=== PATIENT | female | born 1985 | race Caucasian/White ===

== ENCOUNTER 2019-12-08 21:45 | Inpatient (IN) ==
[2019-12-08 23:31] LABS: URINE SOURCE VOIDED
[2019-12-08 23:54] LABS: BASO# 0.05 X1000 (0.0-0.2); BASO% 0.2 % (0.0-0.8); EOS# 0.06 X1000 (0.0-0.7); EOS% 0.3 % (0.0-10.0); HEMATOCRIT 33.3 % (37.0-47.0); HEMOGLOBIN 11.3 g/dL (12.0-16.0); IMM GRAN# 0.09 X1000 (0.0-0.04); IMM GRAN% 0.4 % (0.0-0.5); LYMPH# 2.17 X1000 (1.2-3.4); LYMPH% 10.3 % (20.5-51.1); MCHC 33.9 g/dL (33-37); MCV 94.3 FL (81-99); MONO# 1.02 X1000 (0.11-0.59); MONO% 4.9 % (1.7-9.3); MPV 9.9 FL (7.4-10.4); NEUT# 17.63 X1000 (1.4-6.5); NEUT% 83.9 % (42.2-75.2); PLT 373 X1000 (130-400); RBC 3.53 XMIL (4.2-5.4); RDW 12.2 % (11.5-14.5); WBC 21.02 X1000 (4.8-10.8)
[2019-12-09 00:03] LABS: UR AMPHETAMINES QUAL PRESUMPTIVE POSITIVE (NONE DETECT); UR BARBITUATES QUAL NONE DETECTED (NONE DETECT); UR BENZODIAZEPIN QUAL NONE DETECTED (NONE DETECT); UR CANNABINOIDS QUAL NONE DETECTED (NONE DETECT); UR COCAINE QUAL NONE DETECTED (NONE DETECT); UR METHADONE QUAL NONE DETECTED (NONE DETECT); UR OPIATES QUAL NONE DETECTED (NONE DETECT); UR OXYCODONE QUAL NONE DETECTED (NONE DETECT); UR PCP QUAL NONE DETECTED (NONE DETECT)
[2019-12-09 00:09] LABS: BILIRUBIN URINE NEGATIVE (NEGATIVE); BLOOD URINE MODERATE (NEGATIVE); COLOR YELLOW; GLUCOSE URINE NEGATIVE (NEGATIVE); KETONE URINE NEGATIVE (NEGATIVE); LEUKOCYTES URINE NEGATIVE (NEGATIVE); NITRITE URINE NEGATIVE (NEGATIVE); PH URINE 6.5; PROTEIN URINE NEGATIVE (NEGATIVE); SP GRAVITY URINE 1.021; TURBIDITY URINE CLEAR (CLEAR); UROBILINOGEN URINE NORMAL (NORMAL)
[2019-12-09 00:29] LABS: RPR NON-REACTIVE (NONREACTIVE); RUBELLA SCREEN IMMUNE (IMMUNE)
[2019-12-09 00:41] LABS: RAPID HIV PRESUMPTIVE NEGATIVE
[2019-12-09 01:05] LABS: LYMPHS 8 % (21-51); MONO 2 % (1-9); NRBC 1 % (0-0); SEGS 90 % (42-75)
[2019-12-09 01:14] LABS: URINE SOURCE CLEAN CATCH
[2019-12-09] MEDS ORDERED: LR 1,000 ML IV SCH (01:15)
[2019-12-09 02:16] LABS: BILIRUBIN URINE NEGATIVE (NEGATIVE); BLOOD URINE MODERATE (NEGATIVE); COLOR YELLOW; GLUCOSE URINE NEGATIVE (NEGATIVE); KETONE URINE NEGATIVE (NEGATIVE); LEUKOCYTES URINE NEGATIVE (NEGATIVE); NITRITE URINE NEGATIVE (NEGATIVE); PH URINE 6.5; PROTEIN URINE NEGATIVE (NEGATIVE); SP GRAVITY URINE 1.021; TURBIDITY URINE CLEAR (CLEAR); UROBILINOGEN URINE NORMAL (NORMAL)
[2019-12-09 02:18] LABS: UR EPITHELIAL CELLS <10 /HPF (<10); URINE BACTERIA NEGATIVE /HPF; URINE RBC TNTC /HPF (<10); URINE WBC <10 /HPF (<10)
[2019-12-09] MEDS ORDERED: STADOL IV ONE (04:34)
[2019-12-09] MEDS ORDERED: KEFZOL 2 GM/D5W 2 GM/50 ML IVPB IV ONE (04:56)
[2019-12-09] MEDS: LR 1,000 ML IV SCH ×4 (06:23→21:58)
--- NOTE | 2019-12-09 07:37 | Diag Imaging Result Doc PS360 ---
US RENAL 1 (LIMITED)-LEFT - 12/09/2019 INDICATION: Left Flank Pain/ blood in urine TECHNIQUE: COMPARISON: 01/21/2013 FINDINGS: There is moderate left hydronephrosis. There is probably also proximal hydroureter. The obstruction is not demonstrated. There are a couple of rather large stones in the left kidney. These measure up to about 1 cm. The left kidney measures 11.6 x 6.1 x 7.4 cm. IMPRESSION: Moderate left hydronephrosis presumably from a distal obstruction. Stones in the left kidney. Electronically signed by Franklin Ortega 12/09/2019 7:34 AM
--- NOTE | 2019-12-09 07:38 | Diag Imaging Result Doc PS360 ---
US OBS COMPLETE > 14 WKS - 12/09/2019 INDICATION: NPC, unsure of dates TECHNIQUE: COMPARISON: None FINDINGS: There is a single advanced intrauterine . Positioning is cephalic. cardiac activity is 156 bpm. Estimated gestational age is 31 weeks four days +/- 17 days. Estimated delivery date is 02/06/2020. Placenta is fundal. There is a small hypoechoic nodule in the placenta measuring about 9 mm suggesting a small hemangioma. No hemorrhages or fluid collections. No placental calcifications. Normal anatomy and movement. Normal head and intracranial contents, spine, extremities, four-chamber heart, diaphragms, stomach, kidneys, urinary bladder, three-vessel cord and cord insertion. The cervix is long and closed. IMPRESSION: Living advanced intrauterine . Very small hemangioma in the placenta. Otherwise no abnormalities. Electronically signed by Franlkin Ortega 12/09/2019 7:36 AM
[2019-12-09] MEDS: STADOL IV PRN (08:25)
--- NOTE | 2019-12-09 08:31 | HISTORY AND PHYSICAL ---
HISTORY OF PRESENT ILLNESS: Patient is a 34-year-old white female G4, P3 presents with no care and left flank pain that has been worsening over the course of time. PAST MEDICAL HISTORY: Significant for ADHD. PAST SURGICAL HISTORY: She has had dental surgery. PAST OB HISTORY: G4, P3 spontaneous vaginal delivery x3. EXCAVATOR OPERATOR HISTORY: Menarche at age 13. REVIEW OF SYSTEMS: Significant for asthma and migraines. She does report a history of kidney stones in the past. FAMILY HISTORY: Significant for myocardial infarction and diabetes mellitus. SOCIAL HISTORY: Tobacco use 1 pack per day. Alcohol use none. MEDICATIONS: Adderall 50 mg daily. She also takes vitamins. ALLERGIES: Dairy products. PHYSICAL EXAMINATION: VITAL SIGNS: Height 5 feet 1 inch, weight 150 pounds, temperature 97.8 degrees, blood pressure 124/64, pulse of 79, respirations 18, and heart rate in the 130s to 140s with good reassurance. HEENT: Pupils equal, round, and reactive to light and accommodation. Extraocular movements intact. Oropharynx clear. NECK: Supple. No thyromegaly. LUNGS: Clear to auscultation. HEART: Regular rate and rhythm. ABDOMEN: Gravid. Patient with left CVA tenderness to palpation. She rates it as severe pain. EXTREMITIES: No clubbing, cyanosis, or edema noted. NEUROLOGIC: Cranial nerves 2-12 grossly intact. Motor 5/5. LABORATORY AND DIAGNOSTICS: Urinalysis showed moderate blood. Renal ultrasound report showed nephrolithiasis and hydronephrosis on the left side. OB ultrasound shows a 31 week . White count was noted to be elevated at 21,000. Other lab panel was drawn. Hemoglobin was 11.3, hematocrit 33.3, and platelet count 373,000. ASSESSMENT AND PLAN: A 34-year-old white female, G4, P3, at 31 weeks gestation with left nephrolithiasis and hydronephrosis. The patient is being admitted. Ancef 2 g given IV and IV fluids given. We will consult Urology about evaluation and treatment, and also manage her pain through IV medications. We will plan on keeping patient NPO for the present time. cc: Aftab Arcos III, MD
--- NOTE | 2019-12-09 09:55 | Diag Imaging Result Doc PS360 ---
CT RENAL STONE SEARCH - 12/09/2019 INDICATION: Kidney Stones Left Side COMPARISON: 01/21/2013 FINDINGS: The lung bases are clear and the heart size is normal. There is an advanced intrauterine . There is a large right renal stone measuring 10 x 5.4 mm. There is significant bilateral hydroureteronephrosis. There is also significant left-sided perinephric edema. No drainable fluid collections. There is an obstructing left UVJ stone. This measures 3.5 mm. There are numerous phleboliths in the pelvis. No definite right-sided ureteral stone. No bowel obstruction or inflammation. There is moderate constipation. IMPRESSION: 1. Obstructing left UVJ stone with moderate hydroureteronephrosis and perinephric edema. 2. Moderate right hydronephrosis. 3. Rather large nonobstructing right renal stone. No left-sided renal stones. 4. Significant constipation. This exam was performed using automated exposure control, adjustment of mA or kV according to patient size, and/or use of iterative reconstruction technique Electronically signed by Franklin Ortega 12/09/2019 9:52 AM
[2019-12-09 10:23] LABS: HIV ANTIBODY SCREEN SEE COMMENTS
[2019-12-09 10:29] LABS: HEPATITIS B SURFACE ANTIGEN SEE COMMENTS
[2019-12-09] MEDS: KEFZOL 2 GM/D5W 2 GM/50 ML IVPB IV SCH ×3 (11:20→23:39)
[2019-12-09] MEDS ORDERED: BICITRA PO ONE (15:00)
[2019-12-09] MEDS ORDERED: EPHEDRINE ONE (15:44)
[2019-12-09] MEDS ORDERED: SODIUM CHLORIDE 0.9% 10 ML ONE (15:44)
[2019-12-09] MEDS ORDERED: QUELICIN (DOSE) ONE (16:18)
[2019-12-09] MEDS ORDERED: DIPRIVAN 1% ONE (16:18)
[2019-12-09] MEDS ORDERED: XYLOCAINE-MPF 2% ONE (16:18)
[2019-12-09] MEDS ORDERED: KEFZOL 1 GM/D5W 2 GM/100 ML IVPB ONE (17:05)
[2019-12-09] MEDS ORDERED: DITROPAN PO PRN (17:57)
--- NOTE | 2019-12-09 19:48 | CONSULTATION ---
DATE OF CONSULTATION: 12/09/2019 CONSULTING PHYSICIAN: Aftab Arcos III, MD REASON FOR CONSULTATION: Left hydronephrosis, left flank pain, nausea, vomiting, kidney stone. HISTORY OF PRESENT ILLNESS: A 34-year-old female with previous history of urolithiasis who is 4, para 3 without care who presented with severe left flank pain. She is 31 weeks . She reports pain has been present for 3 to 4 days. It is sharp in quality it is severe and intensity. It radiates to her stomach. Nothing makes it better. Nothing makes it worse. She reports associated nausea and overall feeling of fatigue. She denies gross hematuria, fevers or chills. She had a renal ultrasound done on 12/09/2019 revealing left hydronephrosis as well as a right renal stone. She had CT abdomen and pelvis renal stone search done 12/09/2019 that revealed a 3.5 mm left distal ureteral stone with moderate hydroureteronephrosis as well as right hydronephrosis and a 1 cm right renal stone. She continues to have the pain when her IV pain medications wear off. PAST MEDICAL HISTORY: 1. ADHD. 2. Urolithiasis. PAST SURGICAL HISTORY: Dental surgery. MEDICATIONS: Adderall and vitamins. Allergy to dairy products. SOCIAL HISTORY: She smokes, denies alcohol or illicit drug use, although her urine screen is suspicious for methamphetamine use. FAMILY HISTORY: She reports history of urolithiasis in extended family but does not recall who. REVIEW OF SYSTEMS: Review of 12 systems negative, except as per the HPI. PHYSICAL EXAMINATION: Vital Signs: T 97.9 degrees, P 97, BP 120/65. General: No acute distress. HEENT: Normocephalic, atraumatic. Cardiovascular: Regular rhythm. Pulmonary: Bilateral breath sounds. Abdomen: Protuberant, nontender to palpation. Distended due to . Back: No CVA tenderness. : Bladder is nontender to palpation. Lymphatic: No cervical lymphadenopathy. No groin lymphadenopathy. Dermatologic: No obvious skin rashes. Neurologic: Alert and oriented x3. Psychiatric: Appropriate mood and affect. PERTINENT LABORATORY DATA: White cell count 21,000, platelet count of 372,000. Urinalysis positive for red cells, negative for bacteria. Her urine screen is positive for amphetamines. PERTINENT IMAGING: Renal ultrasound per HPI and CT renal stone as per HPI. ASSESSMENT/PLAN: A 34-year-old female with significant left flank pain and nausea vomiting who has a 3.5 mm left distal ureteral stone with hydroureteronephrosis. I have discussed with the patient chances of passage with medical expulsive therapy with hydration and pain medications. We discussed that versus left ureteroscopy with laser lithotripsy, stone basket extraction, and possible ureteral stent. Pros and cons of each were explained. She wants to proceed with intervention. She feels strongly that she cannot control the pain she has. We discussed that there is risk to her fetus with respect to premature labor. We discussed the risks of the procedure to her including, but not limited to, bleeding, infection, injury to the kidney, injury to the ureter, inability to remove the stone, need for prolonged stenting and need for additional interventions. She voiced understanding and wants to proceed. PLAN: 1. Continue n.p.o. 2. To operating room today for cystoscopy, left ureteroscopy, laser lithotripsy, stone basket extraction, placement of left ureteral stent. cc: MD Aftab Reeves III, MD
--- NOTE | 2019-12-10 01:05 | OPERATIVE NOTE ---
PROCEDURE DATE: 12/09/2019 SURGEON: Dr. Jairon Quiros. PREOPERATIVE DIAGNOSIS: Left hydroureteronephrosis, left flank pain, left distal ureteral stone. POSTOPERATIVE DIAGNOSIS: Left hydronephrosis, left flank pain. PROCEDURE: Cystoscopy, left diagnostic ureteroscopy, placement of 6-Ukrainian, 22 cm ureteral stent. INDICATIONS: A 34-year-old female with history of urolithiasis presented with significant left- sided flank pain. She underwent ultrasound followed by CT scan, which revealed 10 mm right renal stone as well as bilateral hydronephrosis and left-sided distal ureteral stone with reported obstruction and perinephric edema. The patient was counseled on medical expulsive therapy, but she continues to have significant pain and nausea, vomiting and strongly feels about the procedure. She was counseled on the risks of the procedure both to her and the fetus. FINDINGS: 1. Her stone has passed but there was quite a bit of hydroureteronephrosis, all the way to the level of the ureteral orifice. Ureteroscopy up to the level of left ureteropelvic junction showed no evidence of ureteral injury or stones, but significant hydroureteronephrosis. 2. Successful stent placement. PROCEDURE: After obtaining informed consent, patient was brought to the operating room. Perioperative antibiotics and spinal anesthesia were administered. She was placed in lithotomy position, prepped and draped in sterile fashion. A 21-Ukrainian rigid cystoscope was used to gain access to the bladder, which was briefly examined. She had no evidence of mucosal lesions, excessive trabeculations, diverticulae noted. We turned attention to the left ureteral orifice which was cannulated with PTFE wire that was in turn advanced to the approximate level of renal pelvis. Please note, that I minimize fluoroscopy given the patient's . We then introduced rigid ureteroscope alongside of the PTFE wire. There was quite a bit of mucosal edema just a cm away from the orifice and I expected to find the stone, but there was none. There was significant proximal hydroureteronephrosis. I introduced the ureteroscope all the way to the left ureteropelvic junction. I did not want to introduced rigid ureteroscope in the renal pelvis given the fact that she was under spinal and was still awake. We then slowly withdrew the ureteroscope and confirmed that there was no stone. Hence, we concluded she passed her stone or rather than ureterovesical junction stone this could have been a phlebolith and she has hydroureteronephrosis related to . In either case, given the significant mucosal edema and likely recent passage of stone, we elected to place ureteral stent. In a standard fashion, a 6-Ukrainian, 22 cm stent was then introduced over the wire via cystoscope with the proximal coil position confirmed fluoroscopically and distal coil directly seen. I left the string attached to the stent. Bladder was emptied. Cystoscope was removed. She was awakened and taken to PACU for further recovery. ESTIMATED BLOOD LOSS: None. COMPLICATIONS: None. SPECIMENS: None. DRAINS: A 6-Ukrainian 22 cm ureteral stent. DISPOSITION: To PACU and then back to labor and delivery. I have talked to the patient about keeping the stent in for 2 to 3 days in order to allow the hydronephrosis to improve. She was understanding. cc: MD Aftab Reeves III, MD
[2019-12-10] MEDS: STADOL IV PRN ×3 (01:11→12:56)
[2019-12-10] MEDS: LR 1,000 ML IV SCH ×4 (01:13→17:02)
[2019-12-10] MEDS: KEFZOL 2 GM/D5W 2 GM/50 ML IVPB IV SCH ×3 (05:33→16:59)
--- NOTE | 2019-12-10 08:17 | OB/GYN PROGRESS NOTE ---
- Subjective 34 yo at 31w5d POD#1 s/p cystoscopy,ureteroscopy with L ureteral stent placement for suspected L ureteral stone, no PNC, Rh neg Patient seen and examined. She states pain has improved and is not as severe as yesterday. Today she describes pain as "soreness". She is tolerating a regular diet, denies nausea/vomiting/fever/chills. She denies contractions, VB, LOF. She endorses movement. Per urology op note, no stone visualized, suspect it already passed. L stent placed. FHT: 150/moderate/+accel/no decel [place]: negative UO: 3650/24 hours OB Physical Exam Vital Signs - 8 hr 12/10/19 00:13 12/10/19 01:40 12/10/19 04:00 Temperature 98.0 F 97.1 F L 97.9 F Pulse Rate 84 79 87 Respiratory Rate 18 18 18 Blood Pressure 97/53 102/53 107/53 O2 Sat by Pulse Oximetry 100 97 96 12/10/19 07:28 Temperature 98.9 F Pulse Rate 97 H Respiratory Rate 16 Blood Pressure 92/44 O2 Sat by Pulse Oximetry 98 - CONSTITUTIONAL General Appearance: appears well, alert, no apparent distress - EYES Eyes: PERRL/EOMI - HEAD, EARS, NOSE, MOUTH & THROAT HENMT: normocephalic/atraumatic - RESPIRATORY Respiratory: lungs clear, normal breath sounds, no respiratory distress - CARDIOVASCULAR Cardiovascular: normal peripheral pulses, regular rate, rhythm - GASTROINTESTINAL (ABDOMEN) Abdominal Exam: normal bowel sounds, non tender, soft, other (gravid) - MUSCULOSKELETAL Extremity: non-tender, normal gait, normal inspection, no pedal edema - NEUROLOGIC Neurologic: grossly normal - PSYCHIATRIC Psych/Mental Status: normal mood/affect Active Medications Generic Name Dose Route Start Last Admin Trade Name Freq PRN Reason Stop Dose Admin Butorphanol Tartrate 2 mg 12/09/19 08:01 12/10/19 07:27 Stadol IV 2 mg Q2H PRN PRN Administration Pain Lactated Ringer's 1,000 mls @ 150 mls/hr 12/09/19 04:57 12/10/19 01:13 Lr IV Not Given .[id number] KARINA Cefazolin Sodium/Dextrose 2 gm in 50 mls @ 50 mls/hr 12/09/19 11:30 12/10/19 05:33 Kefzol 2 Gm/D5w IV 50 mls/hr Q6H KARINA Administration Oxybutynin Chloride 5 mg 12/09/19 17:57 Ditropan PO TID PRN PRN urgency/spasms Laboratory Results - last 24 hr 12/08/19 12/09/19 12/09/19 23:02 00:41 09:50 Hep Bs Antigen SEE COMMENTS HIV 1&2 Antibody Screen SEE COMMENTS ABO/Rh A NEGATIVE Weak D (Du) WEAK D NEGATIVE Screen NEGATIVE RhIG Candidate? YES OB Assessment & Plan (1) Urolithiasis Status: Acute Plan: 34 yo at 31w5d POD#1 s/p cystoscopy, ureteroscopy with L stent placement for urolithiasis with no PNC, Rh neg 1. HD stable, afebrile 2. NST Q shift, MF status stable 3. f/u Urology recommendations 4. No signs of labor
[2019-12-10 08:36] LABS: HEMATOCRIT 32.1 % (37.0-47.0); HEMOGLOBIN 10.4 g/dL (12.0-16.0); MCH 31.6 PG (27-31); MCHC 32.4 g/dL (33-37); MCV 97.6 FL (81-99); RBC 3.29 XMIL (4.2-5.4); WBC 12.67 X1000 (4.8-10.8)
[2019-12-10 08:37] LABS: BASO# 0.03 X1000 (0.0-0.2); BASO% 0.2 % (0.0-0.8); EOS# 0.15 X1000 (0.0-0.7); EOS% 1.2 % (0.0-10.0); IMM GRAN# 0.06 X1000 (0.0-0.04); IMM GRAN% 0.5 % (0.0-0.5); LYMPH# 2.48 X1000 (1.2-3.4); LYMPH% 19.6 % (20.5-51.1); MONO# 0.77 X1000 (0.11-0.59); MONO% 6.1 % (1.7-9.3); MPV 9.9 FL (7.4-10.4); NEUT# 9.18 X1000 (1.4-6.5); NEUT% 72.4 % (42.2-75.2); PLT 341 X1000 (130-400); RDW 12.6 % (11.5-14.5)
--- NOTE | 2019-12-10 09:00 | Diag Imaging Result Doc PS360 ---
EXAM: FLUROSCOPY CYSTO 12/09/2019 HISTORY: L URETERAL STENT PLACEMENT TECHNIQUE: One image COMMENT: This image appears to demonstrate a guidewire on the left presumably from placement of a ureteral stent. IMPRESSION: Fluoroscopic image as described. Electronically signed by Miky Hassan 12/10/2019 8:58 AM
[2019-12-10 09:04] LABS: AGAP 10; ALBUMIN 2.9 g/dL (3.5-5.0); ALKALINE PHOSPHATASE 81 U/L (32-104); BUN 7 mg/dL (8-22); CHLORIDE 108 mmol/L (98-107); COSMO 280; CREATININE 0.5 mg/dL (0.5-0.9); ESTIMATED GFR > 60; GLUCOSE 176 mg/dL (70-104); GOT 11 U/L (10-30); GPT 9 U/L (10-36); POTASSIUM 3.8 mmol/L (3.5-5.1); SODIUM 139 mmol/L (136-145); TCO2 21 mmol/L (25-35); TOTAL BILIRUBIN < 0.15 mg/dL (0.20-1.00); TOTAL PROTEIN 5.7 g/dL (6.3-8.3)
[2019-12-11] MEDS: PERCOCET-5 PO PRN ×2 (01:46→05:49)
[2019-12-11 06:33] LABS: BASO# 0.02 X1000 (0.0-0.2); BASO% 0.2 % (0.0-0.8); EOS% 2.4 % (0.0-10.0); HEMATOCRIT 33.1 % (37.0-47.0); HEMOGLOBIN 10.6 g/dL (12.0-16.0); IMM GRAN# 0.05 X1000 (0.0-0.04); IMM GRAN% 0.4 % (0.0-0.5); LYMPH# 3.35 X1000 (1.2-3.4); LYMPH% 26.7 % (20.5-51.1); MCH 31.5 PG (27-31); MCV 98.5 FL (81-99); MONO# 0.75 X1000 (0.11-0.59); MPV 10.1 FL (7.4-10.4); NEUT# 8.07 X1000 (1.4-6.5); NEUT% 64.3 % (42.2-75.2); PLT 331 X1000 (130-400); RBC 3.36 XMIL (4.2-5.4); RDW 12.7 % (11.5-14.5); WBC 12.54 X1000 (4.8-10.8)
[2019-12-11 08:17] VITALS: BP 115/53
[2019-12-11] MEDS ORDERED: BOOSTRIX VACCINE IM ONE (09:12)
[2019-12-11] MEDS ORDERED: FLU VACCINE IM ONE (09:12)
--- NOTE | 2019-12-12 07:59 | DISCHARGE SUMMARY ---
ADMISSION DATE: 12/09/2019 DISCHARGE DATE: 12/11/2019 Patient is a 34-year-old 4, para 3, approximately 31 weeks gestation, who presented with increasing left flank pain to the Labor and Delivery suite. An ultrasound was performed and indicated hydronephrosis, possible stone. Urology was involved. Urology performed a cystoscopy, urethroscopy and a placement of an urethral stent and the following day, hospital day #2, the patient is discharged home in stable condition. She is asked to take the stent out on Sunday the day after discharge and report for care for which she has an appointment upon discharge. Positive movement. Reactive NST, 31 weeks and 4 days. Discharged home on Tylenol for pain management. Call the office for pain, fever greater than 100.4, vaginal bleeding, decrease in movement, and any other difficulties or problems. cc: Aftab Arcos III, MD
== END 2019-12-11 09:54 | disposition home or self-care (01) | DRG 818 ==
LOC: P.ED 21:45 → LD 22:29 → OPLD 22:29 → LD 22:31
PROVIDERS: ADMIT Obstetrics & Gynecology; ATTEND Obstetrics & Gynecology